=== PATIENT | male | born 1950 | race Asian ===

== ENCOUNTER 2018-08-23 10:29 | Emergency (ER) | payer OTHER ==
[~2018-08-23] VITALS: Ht 172.7 cm; Wt 72.6 kg
--- NOTE | 2018-08-23 10:29 | NUR ---
ED Nurse Note: 1015 patient was brought in by rescue intubated and full cardiac arrest with cpr continue. placed in room continue cpr . please see code blue sheet. prounced patient @[address] nichols
[2018-08-23] MEDS ORDERED: Cefepime HCl 2 GM in NS 110 ML IV SCH (10:30)
[2018-08-23] MEDS ORDERED: Atropine Sulfate 0.4mg/ml inj ONE (10:39)
[2018-08-23] MEDS ORDERED: Lidocaine 1% 10mg/ml/Epi 0.005mg/ml 30ml vial INJ ONE (11:02)
[2018-08-23 11:06] LABS: HEMATOCRIT 23.4 % (42.0-52.0); MEAN CORPUSCULAR VOLUME 101 FL (80-99); PLATELET COUNT 12 K/UL (150-450); RED BLOOD COUNT 2.32 M/UL (4.70-6.10)
[2018-08-23 11:09] LABS: WHITE BLOOD COUNT 0.7 K/UL (4.8-10.8)
[2018-08-23 11:12] LABS: ANION GAP 21 mmol/L (5-15); BLOOD UREA NITROGEN 18 mg/dL (7-18); CALCIUM 7.8 MG/DL (8.5-10.1); CARBON DIOXIDE 11 MMOL/L (21-32); CHLORIDE 102 MMOL/L (98-107); SODIUM 134 MMOL/L (136-145)
[2018-08-23 11:27] LABS: ALANINE AMINOTRANSFERASE 39 U/L (12-78); ALBUMIN 1.4 G/DL (3.4-5.0); ALBUMIN/GLOBULIN RATIO 0.5 (1.0-2.7); ALKALINE PHOSPHATASE 61 U/L (46-116); ASPARTATE AMINO TRANSFERASE 183 U/L (15-37); BILIRUBIN,TOTAL 0.9 MG/DL (0.2-1.0); CKMB 26.4 NG/ML (0.0-3.6); CREATINE KINASE 4708 U/L (26-308)
[2018-08-23 11:29] VITALS: BP 0/0
--- NOTE | 2018-08-23 11:43 | NUR ---
ED Nurse Note:[facility] has been notified spoke to ana referal number [id number] [employer]ENT[employer] TECHNICAL WRITER DECLINED
--- NOTE | 2018-08-23 11:50 | NUR ---
called patients primary and left message dr austyn erazo [phone]
--- NOTE | 2018-08-23 11:59 | Emergency Room Report ---
History of Present Illness General Chief Complaint: CPR Source: EMS Present Illness HPI This patient presents by EMS with CPR in progress. Per report, this patient has a history of lymphoma. He has undergone a recent abdominal surgery. He is undergoing chemotherapy. Per EMS, on their arrival, the patient had agonal breathing and was unresponsive. They noted that he was bradycardic. They state that he shortly thereafter he lost his pulse and stopped breathing. He was intubated prior to arrival. An intraosseous line was placed. The patient underwent CPR with one dose of epinephrine for about 4 minutes prior to his arrival. They arrived with CPR in progress. There is no other history available. Allergies: Coded Allergies: VANCOMYCIN (Verified Allergy, Unknown, 08/23/18) Patient History Past Medical History: DM, HTN, other - Stage 4 lymphoma Past Surgical History: other - Abdominal surgery uncertain date/procedure Reviewed Nursing Documentation: PMH: Agreed; PSxH: Agreed Nursing Documentation-PMH Past Medical History: No History, Except For Hx Hypertension: Yes Hx Diabetes: Yes Hx Cancer: Yes - stage 4 lymphoma, leukemia Review of Systems All Other Systems: limited Physical Exam Vital Signs Date Time Temp Pulse Resp B/P (MAP) Pulse Ox O2 Delivery O2 Flow Rate FiO2 08/23/18 10:23 97.0 0 10 0/0 0 Ambu-Bag Sp02 EP Interpretation: normal - Intubated/bagged, 100% Sp02., other General Appearance: Chronically Ill - Pale, distended abdomen, unresponsive. Head: normocephalic, atraumatic Eyes: bilateral eye abnormal pupil - Pupils fixed and dilated bilaterally Neck: normal inspection Respiratory: other - Intubated/being bagged. BS bilaterally with ventilated breaths. Cardiovascular #1: other - CPR in progress Gastrointestinal: distended - Abdominal surgical dressing in place. Musculoskeletal: normal inspection Neurologic: pronator - Unresponsive, GCS 3, pupils fixed and dilated bilaterally. Skin: pallor Medical Decision Making Diagnostic Impression: Primary Impression: Cardiopulmonary arrest ER Course This patient presents with CPR progress.. EMS, the patient decompensated rapidly after arrival. When they arrived he had agonal breathing. He became bradycardic and lost his pulse and went into PEA. Per report he was having difficulty breathing prior to the decompensation. He has a history of stage IV metastatic cancer. The patient underwent ACLS protocol and CPR. There were 2 temporary ROSC episodes during his ED course. Unfortunately, the patient will become bradycardic and then close his pulse and become asystolic. He underwent multiple rounds of ACLS protocol and CPR here in the emergency department. Please see the code sheet for details. The patient was in asystole during the last episode for over 15 minutes. There was no ROSC. This patient was under resuscitation for over an hour. The patient's pupils were fixed and dilated. I felt that further CPR was futile. Time of 11:15. Laboratory Tests Test 08/23/18 10:43 White Blood Count 0.7 K/UL (4.8-10.8) *L Red Blood Count 2.32 M/UL (4.70-6.10) L Hemoglobin 7.0 G/DL (14.2-18.0) L Hematocrit 23.4 % (42.0-52.0) L Mean Corpuscular Volume 101 FL (80-99) H Mean Corpuscular Hemoglobin 30.1 PG (27.0-31.0) Mean Corpuscular Hemoglobin Concent 29.8 G/DL (32.0-36.0) L Red Cell Distribution Width 19.0 % (11.6-14.8) H Platelet Count 12 K/UL (150-450) L Mean Platelet Volume 15.0 FL (6.5-10.1) H Neutrophils (%) (Auto) % (45.0-75.0) Lymphocytes (%) (Auto) % (20.0-45.0) Monocytes (%) (Auto) % (1.0-10.0) Eosinophils (%) (Auto) % (0.0-3.0) Basophils (%) (Auto) % (0.0-2.0) Differential Total Cells Counted 100 Neutrophils % (Manual) 9 % (45-75) L Lymphocytes % (Manual) 80 % (20-45) H Monocytes % (Manual) 11 % (1-10) H Eosinophils % (Manual) 0 % (0-3) Basophils % (Manual) 0 % (0-2) Band Neutrophils 0 % (0-8) Nucleated Red Blood Cells 14 /100 WBC Platelet Estimate Decreased L Platelet Morphology Clumped Platelets Rare Hypochromasia Anisocytosis 2+ Sodium Level 134 MMOL/L (136-145) L Potassium Level 5.0 MMOL/L (3.5-5.1) Chloride Level 102 MMOL/L (98-107) Carbon Dioxide Level 11 MMOL/L (21-32) L Anion Gap 21 mmol/L (5-15) H Blood Urea Nitrogen 18 mg/dL (7-18) Creatinine 2.0 MG/DL (0.55-1.30) H Estimate Glomerular Filtration Rate 33.6 mL/min (>60) Glucose Level 121 MG/DL (74-106) H Lactic Acid Level 15.00 mmol/L (0.4-2.0) H Calcium Level 7.8 MG/DL (8.5-10.1) L Total Bilirubin 0.9 MG/DL (0.2-1.0) Aspartate Amino Transferase (AST) 183 U/L (15-37) H Alanine Aminotransferase (ALT) 39 U/L (12-78) Alkaline Phosphatase 61 U/L (46-116) Total Creatine Kinase 4708 U/L (26-308) H Creatine Kinase MB 26.4 NG/ML (0.0-3.6) H Creatine Kinase MB Relative Index 0.5 Troponin I 0.500 ng/mL (0.000-0.056) Total Protein 4.0 G/DL (6.4-8.2) L Albumin 1.4 G/DL (3.4-5.0) L Globulin 2.6 g/dL Albumin/Globulin Ratio 0.5 (1.0-2.7) L EKG Diagnostic Results Rate: bradycardiac Rhythm: other - A.fib with SVR ST Segments: other - NSST findings. Rhythm Strip Diag. Results EP Interpretation: yes Rate: 0-150's Rhythm: other - variable. Asytole to A.fib w/RVR. Last Vital Signs Date Time Temp Pulse Resp B/P (MAP) Pulse Ox O2 Delivery O2 Flow Rate FiO2 08/23/18 11:29 0 0 0/0 97 Ambu-Bag 08/23/18 10:23 97.0 Disposition: Condition: Referrals: [facility],REFERRING (PCP) Ria Partida DO Aug 23, 2018 11:59
--- NOTE | 2018-08-23 12:02 | NUR ---
Social Work Emotional support provided to spouse, Holly blountricardo at bedside, who is expressing the loss of patient this morning. Spouse best friend and neighbor (Ann Marie) also present and provided support to spouse. Resources provided (grief support groups, , cremation and burial services). Patient did not have any other family or children.
--- NOTE | 2018-08-23 12:08 | NUR ---
ED Nurse Note: RN pulled out 4 boxes of epi from [employer] due to run out of meds at the crash cart. 3 boxes used and 1 box watsted due to contamination.
--- NOTE | 2018-08-23 12:55 | NUR ---
paper work signed by
[2018-08-23 13:44] VITALS: BP 0/0
== END 2018-08-23 13:47 | disposition expired ==
LOC: EDBD 10:29 → EMR 10:50
DX: I46.9 Cardiac arrest, cause unspecified (principal); R00.1 Bradycardia, unspecified; C85.80 Other specified types of non-Hodgkin lymphoma, unspecified site; E11.9 Type 2 diabetes mellitus without complications; I10 Essential (primary) hypertension
CPT/HCPCS: 36415; 80053; 82550; 82553; 83605; 84484; 85007; 85025; 93005; 96365; 96366; 96368; 99285; J0171